=== PATIENT | male | born 1970 | race Caucasian/White ===

== ENCOUNTER → 2019-05-22 | Day surgery (SDC) | payer SELFPAY ==
[2019-05-22 17:19] VITALS: BP 140/82; PULSE 97; RESP 18; TEMP 36.3; O2SAT 100; BMI 20.2
--- NOTE | 2019-05-22 17:46 | ED.VISSUMM ---
- ER Visit Summary Date of Service: 05/22/19 Chief Complaint: Foreign body stuck in his esophagus History of Present Illness: The patient is a 48 M she had pork chops for dinner last night as well as since that time. States that he is having a snack before the hours. He is never had upper or lower endoscopy. Physical Examination: Nourished male. No acute distress. There is no loss of vital signs are stable afebrile. Pulse ox 100%. H EENT exam unremarkable neck nontender. Lungs clear to auscultation bilaterally. Heart regular rhythm no murmur. Abdomen soft nontender. Extremities moves all 4. Neurovascular intact. Normal calves are nontender without edema. Neurologic awake level. Test Results: None Emergency Department Course and Treatment: Hep-Lock restarted. MRI spoken to the OR staff. Dr. Jon Garcia is in the ER just finished a upper endoscopy for someone with esophageal food bolus. This patient will be taken down there also. Treatment Plan: Patient taken to the OR for Dr. Jon Garcia to do upper endoscopy to evaluate the distal esophagus for possible early and suspected esophageal obstruction due to food bolus. Disposition: Dr. Jon Garcia called me and he had done endoscopy on the patient for a period of time. He was able to relieve some of the distal esophageal meat impaction but said he could not get it to resolve. He said there was a lot of inflammation distally. 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 Family wanted to go to [facility] in [place] at [facility]. I spoke to Dr. Cali the GI physician on-call she wants me to have the patient accepted and admitted by hospitalist and she will set him up for endoscopy either tonight or tomorrow.. Impression: Acute esophageal obstruction secondary to meat impaction This note was generated with [employer] dictation software. It may contain incorrect words, spelling, and punctuation that were not noted in review of the chart prior to signing ED Disposition - Plan for ED Patient: Disposition: [facility]
--- NOTE | 2019-05-22 17:50 | NURSING ---
DR ROJAS FB REMOVAL ENDO
--- NOTE | 2019-05-22 17:59 | PCM.HP.STD ---
Problem List (1) Esophageal obstruction due to food impaction Status: Acute History of Present Illness Date of Admission: 05/22/19 The patient is a 48 year old M who presents to the emergency room with a 24-hour history of not being able to eat or swallow fluids or liquids. He has a poor That he knows is stuck in there. He states that the very large piece. He states that for at least 5 years he has had problems repetitively with swallowing foods. He does not take any medication. He has he has no primary care doctor. He does not seek medical advice regarding this. He has never had any evaluation strep evaluated. He has never had an upper endoscopy. He smokes a pack and half of cigarettes per day. He does not take any antacids. He takes no medications at all no [id number] medications. He has not had any operative procedures on his abdomen. Past Medical History Allergies No Known Allergies Allergy (Verified 05/22/19 17:22) Home Medications: Ambulatory Orders Medication Instructions Recorded NK 05/22/19 Smoking Status: Current every day smoker Review of Systems HEENT: Reports: Difficulty Swallowing, Dysphasia Cardiovascular: Denies: Chest Pain Respiratory: Reports: Cough Gastrointestinal: Reports: - - Heartburn Endocrine: Denies: Change in Body Habitus VTE Information - Inpt Only VTE Present on Admission: No Patient Problems: Active and Suspected Problems Esophageal obstruction due to food impaction (Acute) - Physical Exam General: Alert, - - Clearly appears to be uncomfortable Oral: - - Spitting up saliva Lungs: Rhonchi - Course on right, - - Increased anterior posterior diameter Cardiovascular: Regular rate, Regular Rhythm Abdomen: Soft, Non Tender, Non-Distended Extremities: Clubbing Skin: - - Superficial abrasions right thumb Psych/Mental Status: Normal Affect Vital Signs Temp Pulse Resp BP Pulse Ox 97.4 F L 97 18 140/82 H 100 05/22/19 17:19 05/22/19 17:19 05/22/19 17:19 05/22/19 17:19 05/22/19 17:19 Oxygen Delivery Method Room Air Weight: 145 lb 4.554 oz Body Mass Index (BMI) 20.2 Assessment/Plan All Active Problems Esophageal obstruction due to food impaction (Acute) 48-year-old gentleman with what sounds like a 24-hour history of a large piece of pork chop lodged within his esophagus. He has a 5-year history of similar. He likely has some degree of reflux or hiatal hernia or distal esophageal stricturing. In great detail I have discussed with him the technique, benefits, risks, alternatives. I have clearly explained to the patient that he is at increased interventional risk for bleeding or perforation. He has had increased risk for aspiration and pneumonia. He is at increased risk for . He has had an opportunity to ask and have questions answered. He requests an attempt at the foreign body removal. Jon Garcia M.D., F.A.C.S.
--- NOTE | 2019-05-22 20:25 | OP.ENDO_ITS ---
05/22/2019 No Primary Care Physician Re : Upper GI endoscopy procedure for Sadi Singer Dear Care Physician This procedure was performed on Wednesday, May 22, 2019. My impressions and recommendations are as follows: Impressions : - LA Grade A reflux esophagitis. - Food in the lower third of the esophagus. - An overtube with cap was used to protect the esophagus, to facilitate the procedure, to aid in foreign body removal and to facilitate repeated passages of the scope. - Multiple food fragments removed but not submitted. - The procedure was aborted due to inability to remove food foreign body in total. Recommendations : - Transfer patient to another hospital. Advanced flexible endoscopy, possible need for rigid endoscopy for food foreign body removal. - Continue present medications. My findings are described in the full procedure note, which is enclosed. If I can be of further assistance, please feel free to contact me at Doctor phone number(s): Work: . Sincerely, Jon Garcia MD 05/22/2019 8:25:19 PM This report has been signed electronically.
[2019-05-22 20:30] VITALS: BP 112/90; BP 140/82; PULSE 93; RESP 16; TEMP 36.4; O2SAT 100
[2019-05-22 20:45] VITALS: BP 125/69; BP 140/82; PULSE 102; RESP 16; O2SAT 100
[2019-05-22 21:00] VITALS: BP 118/74; BP 140/82; PULSE 79; RESP 16; TEMP 36.6; O2SAT 98
--- NOTE | 2019-05-22 21:25 | ED.RN ---
PT RETURNED FROM PACU. BEDSIDE REPORT RECEIVED. PT ALERT AND ORIENTED. PT ABLE TO ANSWER QUESTIONS. PT PLACED ON MONITOR. VS OBTAINED
[2019-05-22 21:26] VITALS: BP 134/91; PULSE 100; RESP 18; O2SAT 100
[2019-05-22] MEDS: Ondansetron 4 MG/2 ML Vial IV (21:48)
--- NOTE | 2019-05-22 22:14 | ED.RN ---
fernanda floyd at [facility]. verbalized understanding of report. awaiting patient arrival
--- NOTE | 2019-05-22 22:15 | ED.RN ---
PER FAMILY REQUEST, THIS NURSE SPOKE WITH ANTONINO ABOUT TRANSPORT. FAMILY UPDATED ON CONVERSATION WITH ANTONINO
[2019-05-22 22:32] VITALS: BP 133/81; PULSE 80; RESP 16; O2SAT 100
== END | disposition short-term general hospital (02) ==
LOC: ED 17:59 → SDC 18:03 → AC 18:27 → SDC 05-23 09:44
PROVIDERS: Emergency Provider Emergency Medicine; Visit Provider Surgery
PROC: 0DJ08ZZ Inspection of Upper Intestinal Tract, Via Natural or Artificial Opening Endoscopic (ICD-10-PCS; CPT 43235; principal; 2019-05-22 18:30)
DX: T18.128A Food in esophagus causing other injury, initial encounter (principal); X58.XXXA Exposure to other specified factors, initial encounter; Y93.9 Activity, unspecified; Y92.9 Unspecified place or not applicable; Y99.9 Unspecified external cause status; F17.210 Nicotine dependence, cigarettes, uncomplicated; K21.0 Gastro-esophageal reflux disease with esophagitis; Z53.8 Procedure and treatment not carried out for other reasons
CPT/HCPCS: 43247; 99285; J7030; A4216; J0330; J1610; J2405